=== PATIENT | female | born 1980 ===

== ENCOUNTER 2018-06-03 07:48 | Day surgery (SDC) | payer BC ==
[~2018-06-03] VITALS: Ht 177.8 cm; Wt 116.7 kg
[2018-06-03 08:45] VITALS: BP 120/85
[2018-06-03] MEDS ORDERED: OMEP-110 PO (08:45)
[2018-06-03] MEDS ORDERED: PARO20TA98 PO (08:45)
[2018-06-03 08:50] LABS: HCG UR SG 1.025 (1.003-1.030)
[2018-06-03] MEDS ORDERED: MIDAZOLAM 1 MG/ML, 2ML ONE (09:37)
[2018-06-03] MEDS ORDERED: FENTANYL PF 250 MCG/5ML ONE (09:37)
[2018-06-03] MEDS ORDERED: HYDROmorphone 2 MG/ML, 1ML IVPush PRN (10:00)
[2018-06-03] MEDS ORDERED: MORPHINE SULFATE 4 MG/ML, 1ML IVPush PRN (10:00)
[2018-06-03] MEDS ORDERED: HALOPERIDOL 5 MG/ML IV PRN (10:00)
[2018-06-03] MEDS ORDERED: PROMETHAZINE 25 MG/ML, 1ML IM PRN ×2 (10:00)
[2018-06-03] MEDS ORDERED: MEPERIDINE/PF 25MG/0.5ML IVPush PRN (10:00)
[2018-06-03] MEDS ORDERED: ACETAMINOPHEN 325 MG TABLET PO PRN (10:00)
[2018-06-03] MEDS ORDERED: ONDANSETRON 2MG/ML, 2ML IV PRN (10:00)
[2018-06-03] MEDS ORDERED: PROMETHAZINE 12.5 MG SUPP PR PRN (10:00)
[2018-06-03] MEDS ORDERED: ONDANSETRON ODT 8 MG PO PRN (10:00)
[2018-06-03] MEDS ORDERED: LABETALOL 5MG/ML, 20ML IV PRN (10:00)
[2018-06-03] MEDS ORDERED: OXYcodone 5 MG/5 ML ORAL.SOL UDC PO PRN (10:00)
[2018-06-03] MEDS ORDERED: PROMETHAZINE 25 MG SUPP PR PRN (10:00)
[2018-06-03] MEDS ORDERED: hydrALAzine 20 MG/ML, 1ML IV PRN (10:00)
[2018-06-03] MEDS ORDERED: PROMETHAZINE 25 MG/ML, 1ML IV PRN (10:00)
[2018-06-03] MEDS ORDERED: FENTANYL PF 100 MCG/2ML IV PRN (10:00)
[2018-06-03] MEDS ORDERED: OMNIPAQUE 350 MG/ML, 50 ML BOTTLE ONE (10:56)
[2018-06-03] MEDS ORDERED: FENTANYL PF 100 MCG/2ML IVPush PRN (12:00)
[2018-06-03] MEDS ORDERED: ONDANSETRON 2MG/ML, 2ML IVPush ONE (12:00)
[2018-06-03] MEDS ORDERED: MAALOX/HYOSCYAMINE/LIDOCAINE 45 ML BTL PO ONE (12:00)
[2018-06-03] MEDS ORDERED: FENTANYL PF 100 MCG/2ML ONE (12:05)
[2018-06-03] MEDS ORDERED: GLYCOPYRROLATE 0.2MG/1ML, 5ML ONE (15:30)
[2018-06-03] MEDS ORDERED: DEXAMETHASONE 4 MG/ML, 1ML ONE (15:30)
[2018-06-03] MEDS ORDERED: NEOSTIGMINE 1 MG/ML, 10ML ONE (15:30)
[2018-06-03] MEDS ORDERED: PROPOFOL 10 MG/ML, 20ML ONE (15:30)
[2018-06-03] MEDS ORDERED: ONDANSETRON 2MG/ML, 2ML ONE (15:30)
[2018-06-03] MEDS ORDERED: ROCURONIUM 10MG/ML,5ML ONE (15:30)
== END 2018-06-03 17:30 | disposition home or self-care (01) ==
LOC: OUT 07:48
PROVIDERS: ATTEND Internal Medicine Gastroenterology
DX: K80.50 Calculus of bile duct without cholangitis or cholecystitis without obstruction (principal); K21.9 Gastro-esophageal reflux disease without esophagitis; Z88.0 Allergy status to penicillin
CPT/HCPCS: 43264; 43275; 74021; 74328; 81025; C1769; J1100; J2250; J2405; J2704; J2710; J3010; Q9967